=== PATIENT | female | born 1955 | race Caucasian/White ===

== ENCOUNTER 2019-06-16 08:34 | Day surgery (SDC) | payer MEDICARE ==
[~2019-06-16] VITALS: Ht 162.6 cm; Wt 56.4 kg
[2019-06-16] MEDS ORDERED: ESTR2 PO (09:09)
[2019-06-16] MEDS ORDERED: LISI5 PO (09:10)
[2019-06-16] MEDS ORDERED: OXYB5 PO (09:10)
[2019-06-16] MEDS ORDERED: MEDR2.5 PO (09:10)
[2019-06-16] MEDS ORDERED: CONEST.9 (09:12)
[2019-06-16] MEDS ORDERED: MULTI-DAY PLUS1 EACH PO (09:13)
--- NOTE | 2019-06-16 09:24 | NUR ---
Ambulatory in Day Surgery History, Chart, Medications and Allergies reviewed before start of procedure.Lungs clear T/O to Auscultation. Patient confirms NPO status and agrees with scheduled surgery. Patient States Post-Procedure ride home has been arranged.
--- NOTE | 2019-06-16 10:13 | NUR ---
06/16/19 1013 [address] [place] History, Chart, Medications and Allergies reviewed before start of procedure.MONITOR INTACT WITH CONTINUOUS PULSE OXIMETRY AND INTERMITTENT BP.3-LEAD EKG REVIEWED WITH PHYSICIAN PRIOR TO START OF PROCEDURE.O2 VIA N/C INTACT THROUGHOUT SEDATION/PROCEDURE. Patient confirms NPO status and agrees with scheduled surgery.PATIENT DETERMINED TO BE ASA APPROPRIATE FOR PROPOFOL SEDATION PRIOR TO START OF PROCEDURE BY DR. HOLLAND.
--- NOTE | 2019-06-16 11:11 | NUR ---
Discharge instructions reviewed with patient. Patient verbalizes understanding. Copy given to patient to take home. Discharged via wheelchair to private car for ride home.
== END 2019-06-16 22:42 | disposition home or self-care (01) ==
LOC: ORSCMMR 08:34 → ORD 09:30 → ORSCMMR 22:42
PROVIDERS: Internal Medicine Gastroenterology
PROC: 0DB68ZX Excision of Stomach, Via Natural or Artificial Opening Endoscopic, Diagnostic (ICD-10-PCS; principal; 2019-06-16 09:30)
PROC: 0DB98ZX Excision of Duodenum, Via Natural or Artificial Opening Endoscopic, Diagnostic (ICD-10-PCS; principal; 2019-06-16 09:30)
DX: R10.13 Epigastric pain (principal); K44.9 Diaphragmatic hernia without obstruction or gangrene; R11.0 Nausea; R68.81 Early satiety; I10 Essential (primary) hypertension; Z79.899 Other long term (current) drug therapy; Z87.891 Personal history of nicotine dependence
CPT/HCPCS: 88305; 88342; J2704

== ENCOUNTER → 2021-11-10 | Outpatient (CLI) | payer MEDICARE, OTHER ==
[~2021-11-10] MED LIST: CONEST.9; ESTR2 PO; LISI5 PO; MEDR2.5 PO; MULTI-DAY PLUS1 EACH PO; OXYB5 PO
[2021-11-10 15:53] LABS: BASOPHILS ABSOLUTE AUTO 0.08 K/mm3 (0.00-0.23); BASOPHILS PERCENT AUTO 1 % (0-2); EOSINOPHILS ABSOLUTE AUTO 0.12 K/mm3 (0.00-0.68); EOSINOPHILS PERCENT AUTO 2 % (0-6); Hematocrit 40.3 % (33.0-51.0); Hemoglobin 13.5 g/dL (11.5-16.0); IMMATURE GRAN ABSOLUTE AUTO 0.01 K/mm3 (0.00-0.10); IMMATURE GRAN PERCENT AUTO 0 % (0-1); LYMPHOCYTES ABSOLUTE AUTO 1.68 K/mm3 (0.84-5.20); LYMPHOCYTES PERCENT AUTO 25 % (21-46); MONOCYTES ABSOLUTE AUTO 0.64 K/mm3 (0.16-1.47); MONOCYTES PERCENT AUTO 9 % (4-13); Mean Corpuscular HGB 32.5 pg (26.0-34.0); Mean Corpuscular HGB Conc 33.5 g/dL (31.5-36.5); Mean Corpuscular Volume 97 fL (80-100); Mean Platelet Volume 10.2 fL (9.1-12.4); NEUTROPHILS ABSOLUTE AUTO 4.26 K/mm3 (1.96-9.15); NEUTROPHILS PERCENT AUTO 63 % (41-73); Platelet Count 310 K/mm3 (150-400); RDW Coefficient Variation 13.2 % (11.7-14.2); RDW Standard Deviation 47.1 fL (35.1-46.3); Red Blood Cell Count 4.15 M/mm3 (3.80-5.20); White Blood Cell Count 6.79 K/mm3 (4.00-11.30)
[2021-11-10 16:29] LABS: Albumin, Blood 3.8 g/dL (3.4-5.0); Albumin/Globulin Ratio 1.1 (0.8-1.8); Bilirubin, Total 0.3 mg/dL (0.1-1.0); Bun/Creatinine Ratio 19.4 (12.0-20.0); Creatinine, Blood 1.08 mg/dL (0.40-1.00); Globulin, Blood 3.5 g/dL (2.2-4.0); Potassium, Blood 4.8 mmol/L (3.5-5.5); Total Protein, Blood 7.3 g/dL (6.4-8.2)
== END | disposition home or self-care (01) ==
LOC: LAB SHORT 15:41
PROVIDERS: Family Medicine
DX: M54.89 Other dorsalgia (principal)
CPT/HCPCS: 80053; 85025

== ENCOUNTER → 2022-05-19 | Outpatient (CLI) | payer MEDICARE ==
[2022-05-19 14:05] LABS: Calcium, Urine 11.7 mg/dL (< 17.5); Calcium, Urine Calculation 269.1 mg/24hrs (42.0-353.0)
[2022-05-19 17:10] LABS: Creatinine Urine 43.1 mg/dL (27.00-270.00)
== END | disposition home or self-care (01) ==
LOC: LAB 11:08 → LAB SHORT 11:08
PROVIDERS: Internal Medicine Endocrinology, Diabetes & Metabolism
DX: M81.0 Age-related osteoporosis without current pathological fracture (principal)
CPT/HCPCS: 81050; 82340; 82570

== ENCOUNTER → 2022-12-22 | Outpatient (CLI) | payer MEDICARE ==
[2022-12-22 19:46] LABS: CHOL/HDL RATIO 3.7; Cholesterol 256 mg/dL (50-200); HDL Cholesterol 69 mg/dL (>39); LDL/HDL RATIO 2.1; Low Density Lipoprotein Chol 142 mg/dL (0-110); Triglycerides 226 mg/dL (30-160); Very Low Density Lipoprot Chol 45 mg/dL (6-32)
[2022-12-25 11:50] LABS: Ferritin, Serum 62 ng/mL (8-252)
== END | disposition home or self-care (01) ==
LOC: LAB 19:06 → LAB SHORT 19:06
PROVIDERS: Nurse Practitioner Family
DX: E78.5 Hyperlipidemia, unspecified (principal); R89.9 Unspecified abnormal finding in specimens from other organs, systems and tissues; D50.9 Iron deficiency anemia, unspecified; Z79.899 Other long term (current) drug therapy
CPT/HCPCS: 80061; 82607; 82728

== ENCOUNTER 2023-08-13 16:44 | Emergency (ER) | payer MEDICARE ==
[~2023-08-13] VITALS: Ht 162.6 cm; Wt 56.2 kg
[2023-08-13] MEDS ORDERED: Norco 5-325 Ta1 EACH PO (19:09)
[2023-08-13 19:26] VITALS: BP 167/76
== END 2023-08-13 19:27 | disposition home or self-care (01) ==
LOC: ER 16:44
DX: S32.018A Other fracture of first lumbar vertebra, initial encounter for closed fracture (principal); S32.028A Other fracture of second lumbar vertebra, initial encounter for closed fracture; S32.038A Other fracture of third lumbar vertebra, initial encounter for closed fracture; S32.058A Other fracture of fifth lumbar vertebra, initial encounter for closed fracture; G89.29 Other chronic pain; I10 Essential (primary) hypertension; X50.0XXA Overexertion from strenuous movement or load, initial encounter; Z79.899 Other long term (current) drug therapy
CPT/HCPCS: 72131; 96372; 99283-25; A9270; J1885

== ENCOUNTER 2023-11-09 11:17 | Day surgery (SDC) | payer MEDICARE ==
[~2023-11-09] VITALS: Ht 162.6 cm; Wt 55.2 kg
[~2023-11-09 11:17] MED LIST changes: +Norco 5-325 Ta1 EACH PO
[2023-11-09] MEDS ORDERED: HYDROCODONE-AC1 EA19 PO (12:00)
[2023-11-09] MEDS ORDERED: TRAZ50 PO (12:00)
[2023-11-09] MEDS ORDERED: LISI5 PO (12:00)
[2023-11-09] MEDS ORDERED: ATOR10 PO (12:00)
[2023-11-09] MEDS ORDERED: OXYB5 PO (12:01)
[2023-11-09] MEDS ORDERED: Neurontin800 MG PO (12:01)
[2023-11-09] MEDS ORDERED: PROLIA60 MG/1 ML SQ (12:01)
--- NOTE | 2023-11-09 12:10 | NUR ---
11/09/23 1210 EDWIN RED T/O 1208 FOR LEFT BLOCK PROCEDURE STARTED 27G 1 10/23 NEEDLE 10CC @6083
[2023-11-09 13:12] VITALS: BP 145/69
== END 2023-11-09 13:55 | disposition home or self-care (01) ==
LOC: ORSCSDS 11:17
PROVIDERS: Orthopaedic Surgery
PROC: 01N50ZZ Release Median Nerve, Open Approach (ICD-10-PCS; principal; 2023-11-09 12:30)
PROC: 0LN80ZZ Release Left Hand Tendon, Open Approach (ICD-10-PCS; principal; 2023-11-09 12:30)
DX: G56.02 Carpal tunnel syndrome, left upper limb (principal); M65.312 Trigger thumb, left thumb; Z79.899 Other long term (current) drug therapy; Z87.891 Personal history of nicotine dependence
CPT/HCPCS: A9270; J7120

== ENCOUNTER → 2025-02-16 | Outpatient (CLI) | payer MEDICARE ==
[~2025-02-16] MED LIST changes: +ATOR10 PO; +CENTRUM SILVER1 EAC2 PO; +GABA800 PO; +HYDROCODONE-AC1 EA19 PO; +Neurontin800 MG PO; +PROLIA60 MG/1 ML SC; +PROLIA60 MG/1 ML SQ; +TRAZ50 PO
[2025-02-16 18:13] LABS: Thyroid Stimulating Hormone 0.78 uIU/mL (0.360-4.800)
[2025-02-16 18:14] LABS: Bun/Creatinine Ratio 19.3 (12.0-20.0); Calcium, Blood 10.1 mg/dL (8.5-10.1); Creatinine, Blood 0.83 mg/dL (0.40-1.00)
== END ==
LOC: LAB SHORT 10:35 → LAB 10:35
PROVIDERS: Nurse Practitioner Family
DX: I10 Essential (primary) hypertension (principal); Z79.899 Other long term (current) drug therapy
CPT/HCPCS: 80048; 84443

== ENCOUNTER 2025-02-23 06:17 | Observation (INO) | payer MEDICARE, OTHER ==
[~2025-02-23] VITALS: Ht 160 cm; Wt 55.2 kg
[~2025-02-23 06:17] MED LIST changes: -CENTRUM SILVER1 EAC2 PO; -GABA800 PO; -PROLIA60 MG/1 ML SC
[2025-02-23] MEDS ORDERED: Ondansetron HCl 2 MG / ML 2ML Vial IV PRN (06:35)
[2025-02-23 06:58] LABS: BASOPHILS ABSOLUTE AUTO 0.04 K/mm3 (0.00-0.23); BASOPHILS PERCENT AUTO 0 % (0-2); EOSINOPHILS ABSOLUTE AUTO 0.02 K/mm3 (0.00-0.68); EOSINOPHILS PERCENT AUTO 0 % (0-6); Hematocrit 38.7 % (33.0-51.0); Hemoglobin 13.2 g/dL (11.5-16.0); IMMATURE GRAN ABSOLUTE AUTO 0.02 K/mm3 (0.00-0.10); IMMATURE GRAN PERCENT AUTO 0 % (0-1); LYMPHOCYTES ABSOLUTE AUTO 2.41 K/mm3 (0.84-5.20); LYMPHOCYTES PERCENT AUTO 26 % (21-46); MONOCYTES ABSOLUTE AUTO 0.79 K/mm3 (0.16-1.47); MONOCYTES PERCENT AUTO 9 % (4-13); Mean Corpuscular HGB 32.8 pg (26.0-34.0); Mean Corpuscular HGB Conc 34.1 g/dL (31.5-36.5); Mean Corpuscular Volume 96 fL (80-100); Mean Platelet Volume 9.8 fL (9.1-12.4); NEUTROPHILS ABSOLUTE AUTO 5.84 K/mm3 (1.96-9.15); NEUTROPHILS PERCENT AUTO 64 % (41-73); Platelet Count 303 K/mm3 (150-400); RDW Coefficient Variation 13.6 % (11.7-14.2); RDW Standard Deviation 48.5 fL (35.1-46.3); Red Blood Cell Count 4.02 M/mm3 (3.80-5.20); White Blood Cell Count 9.12 K/mm3 (4.00-11.30)
[2025-02-23 07:18] LABS: Albumin, Blood 3.6 g/dL (3.4-5.0); Albumin/Globulin Ratio 0.9 (0.8-1.8); Bilirubin, Total 0.3 mg/dL (0.1-1.0); Bun/Creatinine Ratio 20.1 (12.0-20.0); Calcium, Blood 10.5 mg/dL (8.5-10.1); Creatinine, Blood 0.8 mg/dL (0.40-1.00); Globulin, Blood 3.8 g/dL (2.2-4.0); Potassium, Blood 4.1 mmol/L (3.5-5.5); Total Protein, Blood 7.4 g/dL (6.4-8.2)
[2025-02-23] MEDS ORDERED: TraZODone HCl 50 MG Tab PO PRN (13:30)
[2025-02-23] MEDS ORDERED: HydrALAZINE HCl 20 MG / ML 1ML Vial IV PRN (13:30)
[2025-02-23 16:50] VITALS: BP 170/85
[2025-02-23] MEDS ORDERED: TRAZ50 PO (16:54)
[2025-02-23] MEDS ORDERED: OXYB5 PO (16:54)
[2025-02-23] MEDS ORDERED: GABA800 PO (16:54)
[2025-02-23] MEDS ORDERED: PROLIA60 MG/1 ML SC (17:01)
[2025-02-23 18:10] VITALS: BP 158/84
--- NOTE | 2025-02-23 18:32 | NUR ---
ADMIT NOTE PT ARRIVED FROM ER AT 1645 A/OX4. ROOM AIR. INDEPENDENT IN ROOM. ABLE TO MAKE NEEDS KNOWN. DENIES ACUTE CHEST PAIN AT THIS TIME. PATIENT RECEIVED FIRST PART OF STRESS TEST DOWN IN ER. WILL COMPLETE SECOND PART TOMORROW. NO CAFFIENE. WILL BE NPO FOR BREAKFAST PENDING SECOND PART, COULD POTENTIALLY BE PUSHED TILL AFTER LUNCH PER PATIENTS REPORT FROM [employer] TECH. ECHO ORDERED AND PENDING COMPLETION. BLOOD PRESSURE ELEVATED SYSTOLICALLY IN 170'S ON ARRIVAL. PRN IV HYDRALAZINE GIVEN. PATIENT ALSO REPORTED SLIGHT HEADACHE. BLODD PRESSURES NORMALLY RUN IN THE 120'S PER PATIENT. TELE PLACED AND RUNNING NSR. SKIN INTACT. PATIENT PLEASANT AND COOPERATE.
[2025-02-23 19:18] VITALS: BP 132/78
[2025-02-23] MEDS ORDERED: oxyBUTYnin chloride 5 MG TAB PO SCH (21:00)
[2025-02-23] MEDS ORDERED: Gabapentin 400 MG Cap PO SCH (21:00)
[2025-02-23] MEDS ORDERED: Lisinopril 10 MG Tab PO SCH (21:00)
[2025-02-23 23:59] VITALS: BP 107/66
[2025-02-24 03:53] VITALS: BP 120/79
--- NOTE | 2025-02-24 04:34 | NUR ---
SHIFT SUMMARY PT ALERT ORIENTED X 4 ABLE TO VERBALIZE NEEDS GETS UP IN ROOM AD [place]ITCH[place]. NO C/O CHEST PAIN OR PRESSURE. SHES SCHEDULED TO HAVE THE 2ND PART OF HER STRESS TESAT TODAY. SHE HAS ONLY HAD WATER TO DRINK SINCE MIDNIGHT AND WILL BE NPO FOR BREAKFAST. VSS ON RA SATTING AT 98%. REMAINS ON TELEMETRY AT [facility] AT 79. SHE C/O NOT SLEEPING AND REQUESTED A TRAZADONE TO HELP HER SLEEP AND SLEPT MOST OF NIGHT. SHES RESTING IN BED AT THIS TIME WITH CALL LIGHT IN REACH
[2025-02-24 05:46] LABS: CHOL/HDL RATIO 2.5; Cholesterol 182 mg/dL (50-200); HDL Cholesterol 72 mg/dL (>39); LDL/HDL RATIO 1.3; Low Density Lipoprotein Chol 91 mg/dL (0-110); Triglycerides 97 mg/dL (30-160); Very Low Density Lipoprot Chol 19 mg/dL (6-32)
[2025-02-24 07:49] VITALS: BP 136/86
[2025-02-24] MEDS ORDERED: Regadenoson 0.4 MG/5 ML SYRINGE ONE (07:50)
[2025-02-24] MEDS ORDERED: Caffeine Citrated 60 MG/3 ML Vial ONE (07:50)
[2025-02-24] MEDS ORDERED: Aspirin 81 MG Chew PO SCH (09:00)
[2025-02-24] MEDS ORDERED: Atorvastatin 10 MG Tab PO SCH (09:00)
[2025-02-24] MEDS ORDERED: CENTRUM SILVER1 EAC2 PO (10:28)
[2025-02-24 11:59] VITALS: BP 126/65
[2025-02-24] MEDS ORDERED: PROLIA SC SCH (13:15)
--- NOTE | 2025-02-24 15:01 | NUR ---
DISCHARGE PT WITH LEFT CHARLEY. BOTH VERBALIZED UNDERSTANDING OF DISCHARGE INSTRUCTIONS WITH MEDS AND FOLLOW UP. PT DENIES PAIN OR SOB.
[2025-02-25] MEDS ORDERED: Multivitamins/Minerals 1 Tab PO SCH (09:00)
== END 2025-02-24 14:49 | disposition home or self-care (01) ==
LOC: ER 06:17 → MEDS 06:18
PROVIDERS: Student in an Organized Health Care Education/Training Program; ADMIT Internal Medicine
DX: R07.89 Other chest pain (principal); I10 Essential (primary) hypertension; E78.5 Hyperlipidemia, unspecified; M81.0 Age-related osteoporosis without current pathological fracture; N39.3 Stress incontinence (female) (male); G25.81 Restless legs syndrome; G47.00 Insomnia, unspecified; Z79.82 Long term (current) use of aspirin
CPT/HCPCS: 36415; 71046; 78452; 80053; 80061; 83690; 84484; 85025; 93005; 93010; 93017; 96374; 99285-25; A9270; A9500; G0378; J0360; J0706; J2785

== ENCOUNTER 2025-05-15 20:58 | Emergency (ER) | payer MEDICARE, OTHER ==
[~2025-05-15] VITALS: Ht 157.5 cm; Wt 53.1 kg
[~2025-05-15 20:58] MED LIST changes: +CENTRUM SILVER1 EAC2 PO; +GABA800 PO; +PROLIA60 MG/1 ML SC
[2025-05-15] MEDS ORDERED: Ketorolac Tromethamine 15mg Vial IM ONE (21:15)
[2025-05-15] MEDS ORDERED: ACET500 PO (22:35)
[2025-05-15 23:05] VITALS: BP 157/69
== END 2025-05-15 23:06 | disposition home or self-care (01) ==
LOC: ER 20:58
DX: M48.54XA Collapsed vertebra, not elsewhere classified, thoracic region, initial encounter for fracture (principal); I10 Essential (primary) hypertension; E78.5 Hyperlipidemia, unspecified; Z79.899 Other long term (current) drug therapy
CPT/HCPCS: 72128; 96372; 99283-25; A9270; J1885

== ENCOUNTER → 2025-08-18 | Outpatient (CLI) | payer MEDICARE, OTHER ==
[~2025-08-18] MED LIST changes: +ACET500 PO
[2025-08-18 16:22] LABS: BASOPHILS ABSOLUTE AUTO 0.07 K/mm3 (0.00-0.23); BASOPHILS PERCENT AUTO 1 % (0-2); EOSINOPHILS ABSOLUTE AUTO 0.10 K/mm3 (0.00-0.68); EOSINOPHILS PERCENT AUTO 1 % (0-6); Hematocrit 40.3 % (33.0-51.0); Hemoglobin 12.9 g/dL (11.5-16.0); IMMATURE GRAN ABSOLUTE AUTO 0.01 K/mm3 (0.00-0.10); IMMATURE GRAN PERCENT AUTO 0 % (0-1); LYMPHOCYTES ABSOLUTE AUTO 1.83 K/mm3 (0.84-5.20); LYMPHOCYTES PERCENT AUTO 26 % (21-46); MONOCYTES ABSOLUTE AUTO 0.63 K/mm3 (0.16-1.47); MONOCYTES PERCENT AUTO 9 % (4-13); Mean Corpuscular HGB Conc 32.0 g/dL (31.5-36.5); Mean Corpuscular Volume 97 fL (80-100); NEUTROPHILS ABSOLUTE AUTO 4.33 K/mm3 (1.96-9.15); NEUTROPHILS PERCENT AUTO 62 % (41-73); NRBC ABSOLUTE 0.00 K/mm3 (0.00-0.02); NRBC Auto 0.0 /100 WBC (0.0-0.2); Platelet Count 267 K/mm3 (150-400); RDW Coefficient Variation 13.3 % (11.7-14.2); RDW Standard Deviation 47.8 fL (35.1-46.3)
[2025-08-19 00:56] LABS: Alanine Aminotransfer (ALT/SGP 42 U/L (12-78); Albumin, Blood 3.7 g/dL (3.4-5.0); Albumin/Globulin Ratio 1.0 (0.8-1.8); Anion Gap 9 mmol/L (3-11); Aspartate Aminotrans (AST/SGOT 42 U/L (12-37); Bilirubin, Total 0.5 mg/dL (0.1-1.0); Blood Urea Nitrogen 18 mg/dL (8-24); CHOL/HDL RATIO 2.4; CO2, Blood 27 mmol/L (21-32); Calcium, Blood 10.6 mg/dL (8.5-10.1); Chloride, Blood 104 mmol/L (98-108); Cholesterol 168 mg/dL (50-200); Creatinine, Blood 0.73 mg/dL (0.40-1.00); Globulin, Blood 3.7 g/dL (2.2-4.0); Glucose, Blood 97 mg/dL (70-99); HDL Cholesterol 70 mg/dL (>39); LDL/HDL RATIO 1.2; Low Density Lipoprotein Chol 85 mg/dL (0-110); Potassium, Blood 4.1 mmol/L (3.5-5.5); Sodium, Blood 136 mmol/L (136-145); Total Protein, Blood 7.4 g/dL (6.4-8.2); Triglycerides 65 mg/dL (30-160); Very Low Density Lipoprot Chol 13 mg/dL (6-32)
== END ==
LOC: LAB SHORT 14:33 → LAB 14:33
PROVIDERS: Nurse Practitioner Family
DX: E78.5 Hyperlipidemia, unspecified (principal)
CPT/HCPCS: 80053; 80061; 85025